=== PATIENT | female | born 1955 | race Caucasian/White ===

== ENCOUNTER → 2016-09-14 | Outpatient (CLI) | payer OTHER ==
[~2016-09-14] MED LIST: ESTR0.455 PO; LVT.088T PO
--- NOTE | 2016-09-14 13:15 | Diagnostic Imaging Report ---
Right breast diagnostic mammogram. INDICATION: Central slightly lateral right breast focal asymmetry followup. COMPARISON: 02/17/2016. FINDINGS: The previously seen focal asymmetry in the central slightly lateral aspect of the right breast is less prominent compared to the prior exams. More anteriorly there is a slight nodular appearance of the parenchyma that appears minimally more prominent compared to multiple prior exams, but density in this location is seen even in 03/24/2011, exam suggestive of benign etiology. IMPRESSION: No adverse development. Followup of central right breast asymmetry in six months is recommended when the patient is due for her bilateral screening mammogram. ACR BI-RADS Category 3: Probably benign findings. Result letter will be mailed to the patient. Note: At least 10% of breast cancer is not imaged by mammography. Dictated by: Dictated on workstation # [id number]
== END ==
LOC: RAD 07:37
PROVIDERS: ATTEND Internal Medicine
DX: N64.89 Other specified disorders of breast (principal)

== ENCOUNTER → 2017-02-09 | Outpatient (CLI) | payer OTHER ==
--- NOTE | 2017-02-09 08:25 | Diagnostic Imaging Report ---
Bilateral diagnostic mammogram with tomography. INDICATION: Focal asymmetry in the right breast along the central slightly inferior aspect. CAD is utilized. The current study was also evaluated with a Computer Aided Detection (CAD) system. COMPARISON: 02/10/16. FINDINGS: The breasts are composed of heterogenously dense parenchyma which may decrease mammographic sensitivity. The previously seen focal asymmetry is less prominent on the current exam and tomographic evaluation is suggestive of summation artifact of fibroglandular tissue with no underlying lesion identified. No adverse development from the prior exams. IMPRESSION: The previously seen asymmetries appear less prominent and likely related to summation artifact of parenchyma. No mammographic evidence of malignancy. BI-RADS 2. ACR BI-RADS Category 2: Benign findings. Result letter will be mailed to the patient. Note: At least 10% of breast cancer is not imaged by mammography. Dictated by: Dictated on workstation # [id number]
== END ==
LOC: RAD 07:41
PROVIDERS: ATTEND Internal Medicine
DX: R92.8 Other abnormal and inconclusive findings on diagnostic imaging of breast (principal)
CPT/HCPCS: 77066

== ENCOUNTER → 2017-03-02 | Outpatient (CLI) | payer OTHER ==
[~2017-03-02] MED LIST changes: +CATHETER FLUSH 10 ML SYR IV PRN; +IOHEXOL 350 MG/ML 100 ML (OMNIPAQUE 350) VIAL IV ONE; +NS 100 ML (IVPB) BAG IV ONE
[2017-03-02 09:29] LABS: BASOPHILS % (AUTO) 0 % (0-10); EOSINOPHILS % (AUTO) 1 % (0-10); LYMPHOCYTES # (AUTO) 0.6 X 10^3 (1.0-4.0); LYMPHOCYTES % (AUTO) 20 % (12-44); MEAN CORPUSCULAR HEMOGLOBIN 31 PG (25-34); MEAN CORPUSCULAR HGB CONC 33 G/DL (32-36); MEAN CORPUSCULAR VOLUME 93 FL (80-99); MEAN PLATELET VOLUME 10.8 FL (7.4-10.4); MONOCYTES # (AUTO) 0.2 X 10^3 (0.0-1.0); MONOCYTES % (AUTO) 7 % (0-12); NEUTROPHILS # (AUTO) 2.2 X 10^3 (1.8-7.8); NEUTROPHILS % (AUTO) 73 % (42-75); PLATELET COUNT 165 10^3/uL (130-400); RED BLOOD COUNT 4.39 10^6/uL (4.35-5.85); RED CELL DISTRIBUTION WIDTH 12.6 % (10.0-14.5)
[2017-03-02 09:41] LABS: BILIRUBIN,URINE NEGATIVE (NEGATIVE); KETONES,URINE NEGATIVE (NEGATIVE); LEUKOCYTE ESTERASE ,URINE 3+ (NEGATIVE); NITRITE,URINE NEGATIVE (NEGATIVE); PH,URINE 5 (5-9); PROTEIN,URINE NEGATIVE (NEGATIVE); UROBILINOGEN,URINE NORMAL (NORMAL)
[2017-03-02 09:48] LABS: ALANINE AMINOTRANSFERASE 12 U/L (0-55); ALBUMIN 3.9 GM/DL (3.2-4.5); ANION GAP 9 MMOL/L (5-14); ASPARTATE AMINO TRANSFERASE 13 U/L (5-34); BILIRUBIN,TOTAL 0.4 MG/DL (0.1-1.0); BLOOD UREA NITROGEN 16 MG/DL (7-18); BUN/CREATININE RATIO 20; CALCIUM 8.9 MG/DL (8.5-10.1); CARBON DIOXIDE 23 MMOL/L (21-32); CHLORIDE 107 MMOL/L (98-107); GFR ESTIMATED > 60; GLUCOSE 96 MG/DL (70-105); POTASSIUM 3.9 MMOL/L (3.6-5.0); SODIUM 139 MMOL/L (135-145); TOTAL PROTEIN 6.5 GM/DL (6.4-8.2); WBC,URINE 25-50 /HPF
[2017-03-02 09:54] LABS: ERYTHROCYTE SEDIMENTATION RATE 5 MM/HR (0-30)
--- NOTE | 2017-03-02 11:30 | Diagnostic Imaging Report ---
PROCEDURE: CT abdomen and pelvis with contrast. TECHNIQUE: Multiple contiguous axial images were obtained through the abdomen and pelvis after administration of intravenous contrast. INDICATION: Lower abdominal pain. 100 mL of Omnipaque 350 is administered intravenously. FINDINGS: The lung bases appear clear. The liver, the gallbladder, the adrenal glands and the pancreas appear unremarkable. The spleen is 10.6 cm in length, normal. The kidneys have symmetric contrast enhancement and excretion with no hydronephrosis. There is a 3 mm nonobstructive stone in the lower pole of the right kidney. The abdominal aorta is normal in caliber. No para-aortic significantly enlarged lymph node is seen. There is a tiny fat-containing umbilical hernia. There is no significant free fluid or fluid collection in the abdomen or pelvis seen. No bowel obstruction. Minimal diverticulosis is noted. No evidence of diverticulitis. There is bowel wall thickening and enhancement seen involving the proximal jejunum which may relate to infectious or inflammatory jejunitis. No obvious focal mass is seen. There is suggestion of prior hysterectomy. The urinary bladder appears unremarkable. The osseous structures demonstrate mild degenerative changes. IMPRESSION: 1. Prominent thickening and enhancement in the proximal jejunum may relate to infectious or inflammatory jejunitis. If symptoms persist, a followup CT scan in 1-2 months with oral and IV contrast could be obtained to reevaluate. 2. 3 mm nonobstructive stone in the lower pole of the right kidney. 3. A few diverticula in the colon. No diverticulitis. 4. Tiny fat-containing umbilical hernia. Dictated by: Dictated on workstation # [id number]
== END ==
LOC: RAD 09:07
PROVIDERS: ATTEND Internal Medicine
DX: R10.9 Unspecified abdominal pain (principal); E03.9 Hypothyroidism, unspecified; E78.1 Pure hyperglyceridemia; E78.00 Pure hypercholesterolemia, unspecified
CPT/HCPCS: 36415; 74177; 80053; 81000; 85025; 85652; 87088

== ENCOUNTER → 2018-02-15 | Outpatient (CLI) | payer OTHER ==
[~2018-02-15] MED LIST changes: -CATHETER FLUSH 10 ML SYR IV PRN; -IOHEXOL 350 MG/ML 100 ML (OMNIPAQUE 350) VIAL IV ONE; -NS 100 ML (IVPB) BAG IV ONE
--- NOTE | 2018-02-15 08:52 | Diagnostic Imaging Report ---
Indication: Routine screening. Comparison is made with prior mammogram from 02/09/2017 and 02/10/2016. 2-D and 3-D bilateral screening mammography was performed with CAD. Both breasts are heterogeneously dense, limiting the sensitivity of mammography. The parenchymal pattern is stable. No dominant mass or malignant-appearing microcalcifications are seen. The axillae are unremarkable. Impression: BI-RADS category 1. No mammographic features suspicious for malignancy are identified. ACR BI-RADS Category 1: Negative. Result letter will be mailed to the patient. Note: At least 10% of breast cancer is not imaged by mammography. Dictated by: Dictated on workstation # [id number]
== END ==
LOC: RAD 07:58
PROVIDERS: ATTEND Internal Medicine
DX: Z12.31 Encounter for screening mammogram for malignant neoplasm of breast (principal)
CPT/HCPCS: 77067

== ENCOUNTER → 2018-02-22 | Outpatient (CLI) | payer OTHER ==
[~2018-02-22] MED LIST changes: +GADOBUTROL 7.5 MMOL/7.5 ML (GADAVIST) VIAL IV ONE
[2018-02-22 09:19] LABS: BUN/CREATININE RATIO 16; CREATININE SERUM 0.92 MG/DL (0.60-1.30); GFR ESTIMATED > 60
--- NOTE | 2018-02-22 11:22 | Diagnostic Imaging Report ---
EXAM: MRI BRAIN IAC W/WO CONTRAST INDICATION: Asymmetric hearing loss. COMPARISON: None. FINDINGS: No abnormal intracranial signal or enhancement. Normal morphology including the major midline structures, sella and posterior fossa. Dedicated sequences to the level of the internal auditory canals demonstrates normal morphology with no abnormal mass or enhancement. No restricted water diffusion or hemosiderin deposition. No hydrocephalus or extra-axial fluid collections. Normal intracranial flow voids. The orbits are negative on this nondedicated exam. The paranasal sinuses and mastoids are clear. Normal bone marrow signal. IMPRESSION: Normal MRI of the brain without and with IV contrast. Specifically, dedicated sequences through the levels of the internal auditory canals demonstrates normal morphology with no abnormal mass or enhancement. Dictated by: Dictated on workstation # [id number]
== END ==
LOC: RAD 08:32
PROVIDERS: ATTEND Otolaryngology Otolaryngology/Facial Plastic Surgery
DX: H91.8X1 Other specified hearing loss, right ear (principal)
CPT/HCPCS: 36415; 70553; 82565; 84520

== ENCOUNTER → 2019-03-07 | Outpatient (CLI) | payer OTHER ==
[~2019-03-07] MED LIST changes: -GADOBUTROL 7.5 MMOL/7.5 ML (GADAVIST) VIAL IV ONE
--- NOTE | 2019-03-07 09:35 | Diagnostic Imaging Report ---
INDICATION: Routine screening. COMPARISON: 02/15/2018 and 02/09/2017. TECHNIQUE: 2D and 3D bilateral screening mammography was performed with CAD. FINDINGS: Scattered fibroglandular densities are identified bilaterally. The overall parenchymal pattern appears to be stable. No dominant mass or malignant appearing microcalcifications are seen. The axillae are unremarkable. IMPRESSION: No mammographic features suspicious for malignancy are identified. ACR BI-RADS Category 1: Negative. Result letter will be mailed to the patient. Note: At least 10% of breast cancer is not imaged by mammography. Dictated by: Dictated on workstation # [id number]
== END ==
LOC: RAD 08:02
PROVIDERS: ATTEND Internal Medicine
DX: Z12.31 Encounter for screening mammogram for malignant neoplasm of breast (principal)
CPT/HCPCS: 77067

== ENCOUNTER 2019-06-15 05:38 | Outpatient (CLI) | payer OTHER ==
[~2019-06-15] VITALS: Ht 167 cm; Wt 61.3 kg
[2019-06-15] MEDS ORDERED: NFESTCO.45 PO (09:55)
[2019-06-15] MEDS ORDERED: LEVO88TA54 PO (09:55)
[2019-06-15] MEDS ORDERED: AMLO5TAB9 PO (09:55)
== END 2019-06-15 09:58 | disposition home or self-care (01) ==
LOC: PREOP 05:38
PROVIDERS: ATTEND Internal Medicine
DX: Z01.818 Encounter for other preprocedural examination (principal)

== ENCOUNTER → 2020-04-22 | Outpatient (CLI) | payer OTHER ==
[~2020-04-22] MED LIST changes: +AMLO-250 PO; +LEVO88TA54 PO; +NFESTCO.45 PO
--- NOTE | 2020-04-22 12:54 | Diagnostic Imaging Report ---
INDICATION: Routine screening. COMPARISON: 03/07/2019 and 02/15/2018. TECHNIQUE: 2D and 3D bilateral screening mammography was performed with CAD. FINDINGS: Both breasts are heterogeneously dense, limiting the sensitivity of mammography. The parenchymal pattern is stable. No mass or malignant appearing microcalcifications are seen. The axillae are unremarkable. IMPRESSION: No mammographic features suspicious for malignancy are identified. ACR BI-RADS Category 1: Negative. Result letter will be mailed to the patient. Note: At least 10% of breast cancer is not imaged by mammography. Dictated by: Dictated on workstation # [id number]
== END ==
LOC: RAD 07:45
PROVIDERS: ATTEND Internal Medicine
DX: Z12.31 Encounter for screening mammogram for malignant neoplasm of breast (principal)
CPT/HCPCS: 77063; 77067

== ENCOUNTER → 2021-04-27 | Outpatient (CLI) | payer OTHER ==
--- NOTE | 2021-04-27 08:52 | Diagnostic Imaging Report ---
INDICATION: Routine screening. COMPARISON: 04/22/2020 and 03/07/2019. TECHNIQUE: 2D and 3D bilateral screening mammography was performed with CAD. FINDINGS: Both breasts are heterogeneously dense, limiting the sensitivity of mammography. The parenchymal pattern is stable. No mass or malignant-appearing microcalcifications are seen. The axillae are unremarkable. IMPRESSION: No mammographic features suspicious for malignancy are identified. ACR BI-RADS Category 1: Negative. Result letter will be mailed to the patient. Note: At least 10% of breast cancer is not imaged by mammography. Dictated by: Dictated on workstation # [id number]
== END ==
LOC: RAD 07:30
PROVIDERS: ATTEND Internal Medicine
DX: Z12.31 Encounter for screening mammogram for malignant neoplasm of breast (principal)
CPT/HCPCS: 77063; 77067

== ENCOUNTER → 2022-05-24 | Outpatient (CLI) | payer OTHER ==
--- NOTE | 2022-05-24 12:28 | Diagnostic Imaging Report ---
INDICATION: Routine screening. COMPARISON: 04/27/2021 and 04/22/2020. TECHNIQUE: 2D and 3D bilateral screening mammography was performed with CAD. FINDINGS: Both breasts are heterogeneously dense, limiting the sensitivity of mammography. The parenchymal pattern is stable. No mass or malignant-appearing microcalcifications are seen. The axillae are unremarkable. IMPRESSION: No mammographic features suspicious for malignancy are identified. ACR BI-RADS Category 1: Negative. Result letter will be mailed to the patient. Note: At least 10% of breast cancer is not imaged by mammography. Dictated by: Dictated on workstation # [id number]
== END ==
LOC: RAD 09:00
PROVIDERS: ATTEND Internal Medicine
DX: Z12.31 Encounter for screening mammogram for malignant neoplasm of breast (principal)
CPT/HCPCS: 77063; 77067